=== PATIENT | male | born 1995 | race Caucasian/White ===

== ENCOUNTER 2018-10-19 17:02 | Emergency (ER) | payer BC, MEDICAID ==
[~2018-10-19] VITALS: Ht 175.3 cm; Wt 152.9 kg
[2018-10-19 17:19] VITALS: BP 156/74
[2018-10-19] MEDS ORDERED: IBUPROFEN 800 MG TAB PO ONE (19:00)
[2018-10-19] MEDS ORDERED: HYDROcodone-ACET 5/325MG TAB PO ONE (19:00)
== END 2018-10-19 19:13 | disposition home or self-care (01) ==
LOC: ER 17:13
DX: S60.221A Contusion of right hand, initial encounter (principal); Z88.0 Allergy status to penicillin; Z88.6 Allergy status to analgesic agent; W22.8XXA Striking against or struck by other objects, initial encounter; Y93.89 Activity, other specified; Y99.8 Other external cause status; Y92.89 Other specified places as the place of occurrence of the external cause
CPT/HCPCS: 73130

== ENCOUNTER 2019-10-02 13:22 | Emergency (ER) | payer BC, MEDICAID ==
[~2019-10-02] VITALS: Ht 172.7 cm; Wt 145.1 kg
[2019-10-02 13:37] VITALS: BP 142/88
== END 2019-10-02 15:07 | disposition home or self-care (01) ==
LOC: ER 13:22
DX: S80.12XA Contusion of left lower leg, initial encounter (principal); Z88.0 Allergy status to penicillin; Z88.6 Allergy status to analgesic agent; X50.0XXA Overexertion from strenuous movement or load, initial encounter; Y93.89 Activity, other specified; Y92.89 Other specified places as the place of occurrence of the external cause; Y99.8 Other external cause status
CPT/HCPCS: 93971